=== PATIENT | male | born 1985 | race Caucasian/White ===

== ENCOUNTER 2022-10-10 22:35 | Emergency (ER) | payer SELFPAY ==
[~2022-10-10] VITALS: Ht 175.3 cm; Wt 75.0 kg
[2022-10-10 23:59] VITALS: BP 152/111
[2022-10-11] MEDS ORDERED: CEPH500C2 MT (00:19)
[2022-10-11] MEDS ORDERED: SULF1TAB48 MT (00:19)
[2022-10-11] MEDS ORDERED: CEPHALEXIN 250MG CAPSULE PO ONE (00:30)
[2022-10-11] MEDS ORDERED: IBUPROFEN 600MG TABLET PO ONE (00:30)
[2022-10-11] MEDS ORDERED: SULFAMETHOXAZOLE/TRIMETHOPRIM 800/160MG TABLET PO ONE (00:30)
== END 2022-10-11 01:05 | disposition home or self-care (01) ==
LOC: ER 22:35
DX: L03.211 Cellulitis of face (principal); Z86.19 Personal history of other infectious and parasitic diseases
CPT/HCPCS: 99284